=== PATIENT | female | born 1995 | race African-American/Black ===

== ENCOUNTER 2020-04-27 19:24 | Emergency (ER) | payer OTHER, MEDICAID ==
[~2020-04-27] VITALS: Ht 185.4 cm; Wt 137.0 kg
[2020-04-27 19:29] VITALS: BP 137/93
== END 2020-04-27 20:20 | disposition home or self-care (01) ==
LOC: ER 19:24
DX: T78.40XA Allergy, unspecified, initial encounter (principal); X58.XXXA Exposure to other specified factors, initial encounter
CPT/HCPCS: 99283

== ENCOUNTER 2021-01-29 00:04 | Emergency (ER) | payer SELFPAY | END 2021-01-29 01:27 | disposition left against medical advice (07) | LOC: ER 00:04 | DX: Z53.21 Procedure and treatment not carried out due to patient leaving prior to being seen by health care provider (principal); R05 Cough ==

== ENCOUNTER 2021-04-08 02:42 | Emergency (ER) | payer OTHER ==
[~2021-04-08] VITALS: Ht 188 cm; Wt 160.0 kg
[2021-04-08 04:05] LABS: CLARITY URINE TURBID (CLEAR); COLOR URINE YELLOW (YELLOW); KETONES URINE TRACE (NEGATIVE); LEUKOCYTE ESTERASE URINE 2+ (NEGATIVE); NITRITE URINE NEGATIVE (NEGATIVE); OCCULT BLOOD URINE 3+ (NEGATIVE); PH URINE 5.5 (4.5-8.0); PROTEIN URINE 3+ (NEGATIVE); SPECIFIC GRAVITY URINE 1.023 (1.005-1.030)
[2021-04-08] MEDS ORDERED: PHEN-815 MT (04:26)
[2021-04-08] MEDS ORDERED: NITR-87 MT (04:26)
[2021-04-08 04:30] VITALS: BP 131/78
== END 2021-04-08 04:40 | disposition home or self-care (01) ==
LOC: ER 02:42
DX: N30.00 Acute cystitis without hematuria (principal); Z87.440 Personal history of urinary (tract) infections; Z79.899 Other long term (current) drug therapy
CPT/HCPCS: 81003; 81025; 87077; 87186; 99283

== ENCOUNTER 2021-04-18 17:22 | Emergency (ER) | payer OTHER ==
[~2021-04-18] VITALS: Ht 182.9 cm; Wt 150.0 kg
[~2021-04-18 17:22] MED LIST: NITR-87 MT; PHEN-815 MT
[2021-04-18 19:53] LABS: CLARITY URINE CLEAR (CLEAR); COLOR URINE YELLOW (YELLOW); KETONES URINE NEGATIVE (NEGATIVE); LEUKOCYTE ESTERASE URINE 2+ (NEGATIVE); NITRITE URINE NEGATIVE (NEGATIVE); OCCULT BLOOD URINE TRACE (NEGATIVE); PROTEIN URINE NEGATIVE (NEGATIVE); SPECIFIC GRAVITY URINE 1.007 (1.005-1.030); UROBILINOGEN URINE 0.2 E.U./dL (0.2-1.0)
[2021-04-18] MEDS ORDERED: CEPH500C2 MT (20:57)
[2021-04-18 21:08] VITALS: BP 136/68
== END 2021-04-18 21:09 | disposition home or self-care (01) ==
LOC: ER 17:36
DX: N39.0 Urinary tract infection, site not specified (principal)
CPT/HCPCS: 81003; 81025; 99283

== ENCOUNTER 2025-05-02 22:44 | Emergency (ER) | payer OTHER ==
[~2025-05-02] VITALS: Ht 188 cm; Wt 155.0 kg
[~2025-05-02 22:44] MED LIST changes: +CEPH500C2 MT
[2025-05-02 22:52] VITALS: O2SAT 100
[2025-05-02] MEDS: LIDOCAINE 5% PATCH TOP SCH (23:30)
[2025-05-02] MEDS: ACETAMINOPHEN 500MG TABLET PO ONE (23:40)
[2025-05-03] MEDS ORDERED: LIDO-53 TP (00:39)
[2025-05-03 01:01] VITALS: BP 139/83; PULSE 67; RESP 18; TEMP 36.2; O2SAT 100
== END 2025-05-03 01:06 | disposition home or self-care (01) ==
LOC: ER 22:44
DX: M54.2 Cervicalgia (principal); M79.18 Myalgia, other site; V89.2XXA Person injured in unspecified motor-vehicle accident, traffic, initial encounter; Y93.89 Activity, other specified; Y92.410 Unspecified street and highway as the place of occurrence of the external cause; Y99.8 Other external cause status
CPT/HCPCS: 72040; 99283